=== PATIENT | female | born 1990 | race Caucasian/White ===

== ENCOUNTER 2017-11-26 21:30 | Emergency (ER) | payer MEDICAID, OTHER ==
[~2017-11-26] VITALS: Ht 157.5 cm; Wt 77.0 kg
[~2017-11-26 21:30] MED LIST: TRAM50 PO; Z.0.NO CURRENT MEDS
[2017-11-26 21:50] VITALS: BP 115/72; PULSE 91; RESP 16; TEMP 98.9; O2SAT 100
[2017-11-26] MEDS ORDERED: SODIUM CHLORIDE 0.9% FLUSH 10 ML FLUSH IV FLUSH PRN (22:15)
[2017-11-26 22:40] LABS: AUTOMATED NEUTROPHIL # 10.1 TH/MM3 (1.8-7.7); BASOPHIL # 0.1 TH/MM3 (0-0.2); BASOPHIL % 0.5 % (0.0-2.0); EOSINOPHIL # 0.2 TH/MM3 (0-0.4); EOSINOPHIL % 1.2 % (0.0-4.0); HEMATOCRIT 39.7 % (35.0-46.0); HEMOGLOBIN 13.6 GM/DL (11.6-15.3); LYMPH % 20.4 % (9.0-44.0); MEAN CELL VOLUME 90.7 FL (80.0-100.0); MEAN CORPUSCULAR HEMOGLOBIN 30.9 PG (27.0-34.0); MEAN CORPUSCULAR HGB CONC 34.1 % (32.0-36.0); MEAN PLATELET VOLUME 6.7 FL (7.0-11.0); MONO % 8.6 % (0.0-8.0); MONOCYTE # 1.3 TH/MM3 (0-0.9); NEUT % 69.3 % (16.0-70.0); PLATELET COUNT 360 TH/MM3 (150-450); RED BLOOD COUNT 4.38 MIL/MM3 (4.00-5.30); RED CELL DISTRIBUTION WIDTH 13.5 % (11.6-17.2); WHITE BLOOD COUNT 14.6 TH/MM3 (4.0-11.0)
[2017-11-26 23:10] LABS: ALBUMIN 3.6 GM/DL (3.4-5.0); AST (GOT) 9 U/L (15-37); BICARBONATE 26.4 MEQ/L (21.0-32.0); BILIRUBIN, URINE NEG (NEG); BLOOD UREA NITROGEN 9 MG/DL (7-18); BLOOD, URINE MOD (NEG); CALCIUM 9.6 MG/DL (8.5-10.1); CHLORIDE 104 MEQ/L (98-107); CREATININE 0.66 MG/DL (0.50-1.00); GLOMERULAR FILTRATION RATE 107 ML/MIN (>89); GLUCOSE,RANDOM 86 MG/DL (74-106); GLUCOSE,URINE NEG (NEG); KETONE, URINE NEG (NEG); NITRITE,URINE NEG (NEG); PH, URINE 5.5 (5.0-8.5); SODIUM (NA) 139 MEQ/L (136-145); URINE COLOR YELLOW (YELLW/STRAW); URINE LEUKOCYTE ESTERASE NEG (NEG)
[2017-11-26 23:11] LABS: ALT (GPT) 20 U/L (10-53)
[2017-11-26 23:13] LABS: ALKALINE PHOSPHATASE 59 U/L (45-117); TOTAL BILIRUBIN ADULT 0.2 MG/DL (0.2-1.0); TOTAL PROTEIN 7.9 GM/DL (6.4-8.2)
[2017-11-26 23:14] LABS: MUCUS URINE FEW /lpf (OCC); SQUAMOUS EPITHELIAL CELL URINE 2 /hpf (0-5)
--- NOTE | 2017-11-26 23:20 | PD ---
HPI Chief Complaint: Abdominal Pain Time Seen by Provider: 22:03 Travel History International Travel<30 days: No Contact w/Intl Traveler<30days: No Traveled to known affect area: No History of Present Illness HPI This is a 27-year-old female who is 8 weeks by dates who presents to the emergency department with 4 days of intermittent lower abdominal pain, moderate severity, described as a sharp pain, nonradiating with no associated fevers or chills. She has had some vomiting. She denies any diarrhea or constipation. She has never had pain like this before and this is her third . [facility] Past Medical History Medical History: Denies Significant Hx Diminished Hearing: No Genitourinary: Yes (OVARIAN CYST) Immunizations Current: Yes Tetanus Vaccination: < 5 Years Influenza Vaccination: No ?: Menopausal: No : 2 Para: 1 Ectopic : No Ovarian Cysts: No Dilation and Curettage (D&C): No Tubal Ligation: No Past Surgical History Section: Yes Hysterectomy: No Social History Alcohol Use: No Tobacco Use: Yes (1/2PPD) Substance Use: No Allergies-Medications (Allergen,Severity, Reaction): Coded Allergies: No Known Allergies (Verified Adverse Reaction, Unknown, 11/26/17) Reported Meds & Prescriptions Reported Meds & Active Scripts Active No Active Prescriptions or Reported Medications Review of Systems Except as stated in HPI: all other systems reviewed are Neg Physical Exam Narrative GENERAL:Well appearing, no acute distress SKIN: Focused skin assessment warm and dry. HEAD: Atraumatic. Normocephalic. EYES: Pupils equal and round. No injection or drainage. ENT: Moist mucous membranes NECK: Trachea midline. CARDIOVASCULAR: Regular rate and rhythm. No murmur appreciated. RESPIRATORY: Clear to auscultation. Breath sounds equal bilaterally. GASTROINTESTINAL: Abdomen soft, tender to palpation in the suprapubic region with no rebound or guarding. MUSCULOSKELETAL: No obvious deformities. NEUROLOGICAL: Awake and alert. No obvious cranial nerve deficits. Moving all extremities. PSYCHIATRIC: Appropriate mood and affect; insight and judgment normal. Data Data Last Documented VS Vital Signs Date Time Temp Pulse Resp B/P (MAP) Pulse Ox O2 Delivery O2 Flow Rate FiO2 11/26/17 21:50 98.9 91 16 115/72 (86) 100 Orders Orders Complete Blood Count With Diff (11/26/17 22:07) Comprehensive Metabolic Panel (11/26/17 22:07) Urinalysis - C+S If Indicated (11/26/17 22:07) Iv Access Insert/Monitor (11/26/17 22:07) Ecg Monitoring (11/26/17 22:07) Oximetry (11/26/17 22:07) Sodium Chloride 0.9% Flush (Ns Flush) (11/26/17 22:15) Ed Poc Ultrasound (11/26/17 ) Labs Laboratory Tests Test 11/26/17 22:17 White Blood Count 14.6 TH/MM3 Red Blood Count 4.38 MIL/MM3 Hemoglobin 13.6 GM/DL Hematocrit 39.7 % Mean Corpuscular Volume 90.7 FL Mean Corpuscular Hemoglobin 30.9 PG Mean Corpuscular Hemoglobin Concent 34.1 % Red Cell Distribution Width 13.5 % Platelet Count 360 TH/MM3 Mean Platelet Volume 6.7 FL Neutrophils (%) (Auto) 69.3 % Lymphocytes (%) (Auto) 20.4 % Monocytes (%) (Auto) 8.6 % Eosinophils (%) (Auto) 1.2 % Basophils (%) (Auto) 0.5 % Neutrophils # (Auto) 10.1 TH/MM3 Lymphocytes # (Auto) 3.0 TH/MM3 Monocytes # (Auto) 1.3 TH/MM3 Eosinophils # (Auto) 0.2 TH/MM3 Basophils # (Auto) 0.1 TH/MM3 CBC Comment DIFF FINAL Differential Comment Urine Color YELLOW Urine Turbidity CLEAR Urine pH 5.5 Urine Specific [place] 1.026 Urine Protein NEG mg/dL Urine Glucose (UA) NEG mg/dL Urine Ketones NEG mg/dL Urine Occult Blood MOD Urine Nitrite NEG Urine Bilirubin NEG Urine Urobilinogen 1.0 MG/DL Urine Leukocyte Esterase NEG Urine RBC 11 /hpf Urine WBC 4 /hpf Urine Squamous Epithelial Cells 2 /hpf Urine Mucus FEW /lpf Microscopic Urinalysis Comment CULT NOT INDICATED Blood Urea Nitrogen 9 MG/DL Creatinine 0.66 MG/DL Random Glucose 86 MG/DL Total Protein 7.9 GM/DL Albumin 3.6 GM/DL Calcium Level 9.6 MG/DL Alkaline Phosphatase 59 U/L Aspartate Amino Transf (AST/SGOT) 9 U/L Alanine Aminotransferase (ALT/SGPT) 20 U/L Total Bilirubin 0.2 MG/DL Sodium Level 139 MEQ/L Potassium Level 3.7 MEQ/L Chloride Level 104 MEQ/L Carbon Dioxide Level 26.4 MEQ/L Anion Gap 9 MEQ/L Estimat Glomerular Filtration Rate 107 ML/MIN MDM Medical Decision Making Medical Screen Exam Complete: Yes Emergency Medical Condition: Yes Interpretation(s) Leukocytosis likely normal in Electrolytes are reassuring Urinalysis demonstrates some blood Differential Diagnosis Urinary tract infection, ectopic , appendicitis Narrative Course This is a 27-year-old female who presents to the emergency department with lower abdominal pain. She is 8 weeks by dates but has not had an ultrasound. Bedside ultrasound demonstrates an intrauterine with a heart rate of 164. She does have a leukocytosis which I suspect is normal in early . She is afebrile and is not tachycardic. I doubt this reflects appendicitis however patient was advised if her pain migrates or if she develops fever she should return to the emergency department at which time we consider advanced imaging. I think patient is safe for discharge. Procedures Procedure Narrative [id number] ultrasound: Single intrauterine visualized with a heart rate of 164 Diagnosis Primary Impression: Intrauterine Patient Instructions: General Instructions Additional Instructions: If you develop severe or worsening abdominal pain, fever>100.4, persistent vomiting or inability to eat or drink return to the emergency department immediately. You had some blood in your urine. This should be rechecked by your primary care doctor or [facility] [employer] [employer] Med/Other Pt SpecificInfo: No Change to Meds Scripts No Active Prescriptions or Reported Meds Disposition: 01 DISCHARGE HOME Condition: Stable Ciarra Katz MD November 26, 2017 23:20
== END 2017-11-26 23:40 | disposition home or self-care (01) ==
LOC: NEPD 21:30
DX: O26.891 Other specified pregnancy related conditions, first trimester (principal); R10.30 Lower abdominal pain, unspecified; D72.829 Elevated white blood cell count, unspecified; O99.331 Smoking (tobacco) complicating pregnancy, first trimester; Z3A.08 8 weeks gestation of pregnancy; Z3A.01 Less than 8 weeks gestation of pregnancy
CPT/HCPCS: 80053; 81001; 85025

== ENCOUNTER 2018-01-03 23:33 | Emergency (ER) | payer OTHER ==
[~2018-01-03] VITALS: Ht 157.5 cm; Wt 75.0 kg
[2018-01-03 23:47] VITALS: BP 116/56; PULSE 94; RESP 18; TEMP 98.6; O2SAT 99
== END 2018-01-04 01:44 | disposition left against medical advice (07) ==
LOC: NED 23:33
DX: Z03.89 Encounter for observation for other suspected diseases and conditions ruled out (principal)
CPT/HCPCS: 99281

== ENCOUNTER 2018-01-04 10:34 | Emergency (ER) | payer OTHER ==
[~2018-01-04] VITALS: Ht 157.5 cm; Wt 76.0 kg
[2018-01-04 10:54] VITALS: BP 114/60; PULSE 85; RESP 19; TEMP 98.1; O2SAT 100
== END 2018-01-04 13:56 | disposition left against medical advice (07) ==
LOC: NED 10:34
DX: Z04.3 Encounter for examination and observation following other accident (principal)
CPT/HCPCS: 99281